=== PATIENT | male | born 1975 | race Caucasian/White ===

== ENCOUNTER 2022-03-22 06:48 | Day surgery (SDC) | payer BC ==
[2022-03-22] MEDS ORDERED: Midazolam 1 MG/ML 2 ML SDV ONE (07:23)
[2022-03-22] MEDS ORDERED: Propofol 200 MG/20 ML SDV ONE ×2 (07:23→08:38)
[2022-03-22] MEDS ORDERED: fentaNYL 50 MCG/ML SDV ONE (07:23)
[2022-03-22] MEDS ORDERED: Lactated Ringers 1,000 ML IV SCH (07:30)
== END 2022-03-22 10:20 | disposition home or self-care (01) ==
LOC: JP.SDS 06:48
PROVIDERS: ATTEND Student in an Organized Health Care Education/Training Program
DX: K63.5 Polyp of colon (principal); K21.9 Gastro-esophageal reflux disease without esophagitis; Z79.899 Other long term (current) drug therapy
CPT/HCPCS: 45380; 88305; J2250; J2704; J3010; J7120